=== PATIENT | female | born 1970 | race Two or more races ===

== ENCOUNTER 2025-07-12 03:29 | Emergency (ER) | payer MEDICAID, SELFPAY ==
[2025-07-12 03:30] VITALS: BMI 29.9
--- NOTE | 2025-07-12 03:32 | EKG_ITS ---
[facility] Test Date: 2025-07-12 Pat Name: SKYLAR MERLOS Department: Room: - Gender: Female Systems Auditor: : 1970 Requested By: ED Temporary Provider Order Number: [id number] Reading MD: ED Temporary Provider Measurements Intervals [place] Rate: 89 P: 41 MS: 148 QRS: 66 QRSD: 69 T: 60 QT: 341 QTc: 415 Interpretive Statements SINUS RHYTHM Compared to ECG 10/03/2017 10:40:22 No significant changes /store/S0/[id number].pdf
[2025-07-12 03:44] VITALS: BP 145/89; PULSE 90; RESP 18; TEMP 36.6; O2SAT 96
--- NOTE | 2025-07-12 04:06 | XR_ITS ---
Examination: Shoulder, left, 3 views Technique: Shoulder AP internal rotation, AP external rotation, Y view shoulder, 3 views Exam date and time : July 12, 2025, 0429 hours INDICATION: Left shoulder pain 3 days no trauma FINDINGS: Prominent left shoulder calcific tendinitis No shoulder fracture or dislocation IMPRESSION: Prominent left shoulder calcific tendinitis
--- NOTE | 2025-07-12 04:06 | XR_ITS ---
EXAMINATION: PA chest single view TECHNIQUE: Upright PA chest single view Date and time: July 12, 2025, 0432 hours INDICATION: Chest pain beginning 3 days ago. FINDINGS: Early right perihilar right upper lobe right base pneumonia Mild prominence left ventricle Left lung clear Intact osseous structures IMPRESSION: Significant right lung pneumonia
--- NOTE | 2025-07-12 04:07 | EDRME_ITS ---
Rapid Medical Screening Exam [facility] Arrival date/time: 07/12/25 03:29 54F with no significant PMH presents to ED with 3-4 days of L shoulder pain w/o fall/trauma that radiates down chest/back. Patient denies URI symptoms and persistent SOB. Patient went to PCP yesterday who prescribed arthritis meds, but patient didn't pick any up. Pain is worse with ROM of L shoulder. Chief Complaint: Chest Pain Time Seen by Provider: 07/12/25 03:40 Vital signs: Vital Signs Temperature 98 F 07/12/25 03:44 Pulse Rate 90 07/12/25 03:44 Respiratory Rate 18 07/12/25 03:44 Blood Pressure 145/89 H 07/12/25 03:44 Pulse Oximetry (%) 96 07/12/25 03:44 Oxygen Delivery Method Room Air 07/12/25 03:44 Exam: Clear lungs and normal WOB. RRR. L shoulder ROM intact, but painful. Clinical Impression: L shoulder pain/OA vs frozen shoulder vs ACS vs PE/DVT vs costochondritis vs septic arthritis
[2025-07-12] MEDS: HYDROcodone/APAP 5/325 TABLET 1 TAB PO (04:46)
[2025-07-12] MEDS: DEXAMETHASONE SOD PHOS INJ 10 MG/ML VIAL PO (04:46)
[2025-07-12 05:03] LABS: Basophils # (Auto) 0.1 Thou/mm3 (0.0-0.2); Basophils % (Auto) 1 % (0-2.5); Eosinophils # (Auto) 0.4 Thou/mm3 (0.0-0.5); Eosinophils % (Auto) 3 % (0-10); Hematocrit 42.4 % (36.0-46.0); Hemoglobin 14.3 g/dL (12.0-16.0); Immature Granulocytes Auto 0.03 Thou/mm3 (0.00-0.00); Lymphocytes # (Auto) 3.9 Thou/mm3 (1.0-4.8); Lymphocytes % (Auto) 32 % (10-50); Mean Corpuscular HGB Conc 33.7 g/dl (31.0-37.0); Mean Corpuscular Hemoglobin 30.6 pg (25.0-35.0); Mean Corpuscular Volume 91 fL (80-100); Monocytes # (Auto) 0.8 Thou/mm3 (0.0-0.8); Monocytes % (Auto) 7 % (0-12); Neutrophils # (Auto) 6.9 Thou/mm3 (1.8-7.7); Neutrophils % (Auto) 57 % (37-80); Nucleated Red Blood Cell # 0.00 Thou/mm3 (0.00-0.00); Nucleated Red Blood Cell % 0 /100 WBC (0); Platelet Count 274 Thou/mm3 (140-440); RDW Standard Deviation 39.6 fL (36.4-46.3); Red Blood Count 4.67 Miln/mm3 (4.00-5.20); White Blood Count 12.1 Thou/mm3 (3.6-11.0)
[2025-07-12 05:20] LABS: Alanine Aminotransferase 50 U/L (10-49); Albumin, Serum 5.1 gm/dL (3.5-5.0); Albumin/Globulin Ratio 1.8 (1.2-2.2); Alkaline Phosphatase 153 U/L (46-116); Anion Gap 9 (7-16); Aspartate Amino Transferase 33 U/L (0-34); BUN/Creatinine Ratio 16 Ratio (12-20); Bilirubin,Total 0.6 mg/dL (0.3-1.2); Blood Urea Nitrogen 13 mg/dL (9-23); Calcium 9.7 mg/dL (8.3-10.6); Calcium (Corrected) 9.7 mg/dL (8.5-10.1); Carbon Dioxide 29.6 mMol/L (20.0-31.0); Chloride 101 mMol/L (98-107); Creatinine (Component) 0.8 mg/dL (0.6-1.3); Estimated Creatinine Clearance 68.5 mL/min (>60); Globulin 2.9 gm/dL (2.3-3.5); Glucose 195 mg/dL (74-106); Osmolality,Calculated 284 (275-295); Potassium 4.1 mMol/L (3.4-5.1); Sodium 140 mMol/L (136-145); Total Protein 8.0 gm/dL (5.7-8.2); Troponin I < 0.002 ng/mL (0.0-0.045); eGFR > 60 See Note
--- NOTE | 2025-07-12 08:23 | EDNOTE_ITS ---
ED Chest Pain RME/HPI General Chief Complaint: Chest Pain Stated Complaint: LEFT SHOULDER PAIN RADIATING TO CHEST Time Seen by Provider: 07/12/25 03:40 Arrival date/time: 07/12/25 03:29 Limitations: no limitations RME / HPI RME / HPI narrative: 07/12/25 03:29 54F with no significant PMH presents to ED with 3-4 days of L shoulder pain w/o fall/trauma that radiates down chest/back. Patient denies URI symptoms and persistent SOB. Patient went to PCP yesterday who prescribed arthritis meds, but patient didn't pick any up. Pain is worse with ROM of L shoulder. DR. DM WRAY ED EVALUATION: Patient is a 54-year-old female is in the emergency department concerns for pain to her left shoulder that radiates to her chest. States that she was evaluated by another doctor, for her arm pain however was not given the results. Patient states that she has had this pain for a long time was told that she had arthritis by another provider however has had persistent pain and wanted to be evaluated today. Denies any injury, fevers, chills, nausea, vomiting, abdominal pain, palpitations. No weakness in the upper extremity. Denies any chest pain. Patient states that she has had a cough for over a year, has had multiple episodes of pneumonia in the past. Related Data Previous Rx's ?Medication ?Instructions ?Recorded azithromycin 500 mg tablet See Rx Instructions PO .COM PLEX #6 11/08/19 tabs ibuprofen 800 mg tablet 800 mg PO TID PRN pain #30 t abs 11/08/19 promethazine-DM 6.25 mg-15 mg/5 mL 5 ml PO Q6H PRN cou gh #473 mL 11/08/19 oral syrup albuterol sulfate 90 mcg/actuation 2 puff inhalation Q 6H PRN 07/10/20 aerosol inhaler shortness of breath or wheez ing #8.5 grams oxycodone-acetaminophen 5 mg-325 1 tab PO Q6H PRN pain #14 tabs 07/25/22 mg tablet (Percocet) methocarbamol 750 mg tablet 750 mg PO Q8H #20 tabs naproxen 500 mg tablet 500 mg PO Q8H PRN pain #14 t abs 08/19/23 amoxicillin 875 mg-potassium 1 tab PO Q12H #14 tabs clavulanate 125 mg tablet Allergies Allergy/AdvReac Type Severity Reaction Status Date / Time No Known Allergies Allergy Verified 07/12/25 03:29 ED Exam General Limitations: Present no limitations General appearance: Present alert Head Head exam: Present atraumatic Eye Eye exam: Present normal appearance ENT ENT exam: Present normal exam Neck Neck exam: Present normal inspection Chest Chest inspection: Present normal inspection Respiratory Respiratory exam: Absent respiratory distress Cardiovascular Cardiovascular exam: Present regular rate Abdominal Exam Abdominal exam: Absent distention Extremities Exam Extremities exam: Present other (Tenderness palpation along the left anterior shoulder, pain worsened with range of motion of the left shoulder, skin is intact no lesions, 2+ radial pulses bilateral symmetric intact, intact sensation strong bilateral upper extremities); Absent normal inspection Neurological Exam Neurological exam: Present alert Psychiatric Psychiatric exam: Present normal affect Skin Skin exam: Present warm and dry Course Quality Measures none Orders Category Date Time Status EKG (ED ONLY) *Do not use* NOW Care 07/12/25 03:32 Completed EKG (ED Only) Stat Exams 07/12/25 03:32 Draft XR chest 1V portable Stat Exams 07/12/25 04:06 Completed XR shoulder LT min 2V Stat Exams 07/12/25 04:06 Completed CBC Stat Lab 07/12/25 04:45 Completed Comprehensive Metabolic Panel Stat Lab 07/12/25 04:45 Completed Troponin I Stat Lab 07/12/25 04:45 Completed Amoxicillin/Pot Clav 875 [Augmentin 875] Med 07/12/25 09:16 Discontinued 1 tab PO X1 ONE Dexamethasone Inj [Decadron Inj] Med 07/12/25 04:07 Discontinued 10 mg PO X1 ONE HYDROcodone*/APAP 5/325 [[place] 5/325] Med 07/12/25 04:06 Discontinued 1 tab PO X1 ONE Vital Signs Vital signs: Vital Signs Temperature 98 F 07/12/25 03:44 Pulse Rate 90 07/12/25 03:44 Respiratory Rate 18 07/12/25 03:44 Blood Pressure 145/89 H 07/12/25 03:44 Pulse Oximetry (%) 96 07/12/25 03:44 Oxygen Delivery Method Room Air 07/12/25 03:44 Chest Pain MDM Narrative MDM Narrative:: Patient is a 54-year-old female seen in the emergency department with left shoulder and anterior chest pain. Concern for ACS arrhythmia electrolyte abnormality pneumonia arthritis among others. Patient was evaluated by prior provider, ordered labs without any acute hematologic or significant metabolic abnormality troponin not elevated I also ordered x-ray, EKG and x-ray of the shoulder. Offered medication for symptom relief. EKG performed at 340 in the morning today interpreted by Dr. Vanessa Barney notable for sinus rhythm normal intervals, nonspecific T wave changes, not a cardiac alert. Chest x-ray with significant pneumonia. Shoulder x-ray with evidence of calcific tendinitis. On my evaluation, pain reproducible with palpation and range of motion of the left shoulder. Advised patient that is important that she follow-up with an orthopedic surgeon and her primary care doctor. She would benefit for further evaluation for possible physical therapy and advanced imaging to understand the treatment plan. Advised her that she can apply ice, use ibuprofen and Tylenol for pain at home. Patient denies any chest pain however advised her to follow- up with a engineer third assistant she would benefit from a stress test given her history of hyperlipidemia and diabetes. Patient discharged to home she feels better she is hemodynamically stable not distressed Patient data External records reviewed:: [facility] previous records Clinical information provided by:: patient Social determinants that could affect healthcare access:: none Patient has the following chronic illnesses:: See MDM How is presenting disease/condition affected by chronic disease/condition?: exacerbated by Evaluation data The following diagnostics were reviewed and interpreted by me:: lab results, radiology exam(s) and EKG tracing(s) Lab and/or radiology exams considered but not ordered:: None Interpretation Summary: See MDM Medications / Prescriptions Medications or Prescriptions considered but not ordered:: None Medication administrations:: Medication Administration History Discontinued Medications Hydrocodone Bitart/Acetaminophen (Hydrocodone/Apap 5/325 Tablet) 1 tab PO X1 ONE Stop: 07/12/25 04:07 Last Admin: 07/12/25 04:46 Dose: 1 tab Documented By: TORO Amoxicillin/Clavulanate Potassium (Amoxicillin/Pot Clav 875 Tablet) 1 tab PO X1 ONE Stop: 07/12/25 09:17 Dexamethasone Sodium Phosphate (Dexamethasone Sod Phos Inj 10 Mg/Ml Vial) 10 mg PO X1 ONE Stop: 07/12/25 04:08 Last Admin: 07/12/25 04:46 Dose: 10 mg Documented By: TORO See above Consultations Consultation(s) initiated? (list below): No Diagnosis Chest Pain Differential Diagnosis: other Most likely diagnosis given after review of the tests above:: Calcific tendinitis, shoulder pain Admission Indicated Admission indicated?: not indicated Admission Request Was there a request for admission?: No Disposition Plan Disposition Plan: Discharge Discharge Attestation Discharge Attestation: The patient and all family members were given an opportunity to ask questions and understood the discharge instructions. Discharge instructions specifically effects, indications for sooner follow up or return to the emergency department, and the expected course of current diagnosis. Patient condition: Stable Discharge Plan Plan Patient Disposition: HOME (Self Care) Prescriptions/Referrals Prescriptions/Med Rec: New amoxicillin-pot clavulanate 875-125 mg tablet 1 tab PO Q12H Qty: 14 0RF No Action promethazine-DM 6.25-15 mg/5 mL syrup 5 ml PO Q6H PRN (Reason: cough) Qty: 473 0RF ibuprofen 800 mg tablet 800 mg PO TID PRN (Reason: pain) Qty: 30 0RF azithromycin 500 mg tablet See Rx Instructions .ROUTE .COMPLEX Qty: 6 0RF Rx Instructions: take 500 mg today (day 1), then 250 mg for 4 days (days 2-5) albuterol sulfate 90 mcg/actuation HFA aerosol inhaler 2 puff inhalation Q6H PRN (Reason: shortness of breath or wheezing) Qty: 8.5 2RF oxycodone-acetaminophen [Percocet] 5-325 mg tablet 1 tab PO Q6H MDD 4 PRN (Reason: pain) Qty: 14 0RF naproxen 500 mg tablet 500 mg PO Q8H PRN (Reason: pain) Qty: 14 0RF methocarbamol 750 mg tablet 750 mg PO Q8H Qty: 20 0RF Referrals: Adrian Hoffmann MD [Primary Care Provider, Family Practice] - In 1 week Problem List Clinical Impression: Pneumonia, Tendinitis, Chronic left shoulder pain Patient/Caregiver Discharge Instructions Education Materials: ED Pneumonia (Adult), ED Shoulder Impingement Syndrome, ED RICE Additional Instructions: Por favor hacer casey con puga medico de cabecera esta semana y pedir casey con un cirujano ortopedico para continuar evaluacion de puga dolor cronico de hombro. Beneficiaria de casey con pulmonolo para evaluacion de puga tos que [place] tenido por mas de jael ano. Print Language: [place] Stand Alone Forms: Kasia Award Info., Patient Portal Info Letter
[2025-07-12] MEDS: AMOXICILLIN/POT CLAV 875 TABLET 1 TAB PO (09:35)
== END 2025-07-12 09:41 | disposition home or self-care (01) ==
PROVIDERS: Physician Assistant; Emergency Provider Emergency Medicine; PCP Family Medicine
DX: J18.9 Pneumonia, unspecified organism (principal); M77.9 Enthesopathy, unspecified; G89.29 Other chronic pain; M25.512 Pain in left shoulder
CPT/HCPCS: 36415; 71045; 73030; 80053; 84484; 85025; 93005; 99283; J1100; A9270